=== PATIENT | male | born 1935 | race Caucasian/White ===

== ENCOUNTER 2016-07-25 17:48 | Emergency (ER) | payer OTHER ==
[~2016-07-25 17:48] MED LIST: ASPIRIN ADULT L81 MG PO; AVAPRO150 MG PO; AVODART0.5 MG PO; BENADRYL25 MG PO; CEFTIN500 MG PO; FLOMAX0.4 MG PO; GABAPENTIN300 MG PO; HYDRALAZINE HCL25 MG PO; LASIX20 MG PO; LIPITOR10 MG PO; LIPOFLAVONOID; MAG6464 MG PO; MULTIPLE VITAMIN PO; NORVASC10 MG PO; PREDNISONE20 MG PO; QVAR40 MCG IN; TOPROL XL50 MG PO; TRAMADOL HCL50 MG PO; VENTOLIN HFA IN
--- NOTE | 2016-07-25 20:09 | DIAGNOSTIC IMAGING REPORT ---
PROCEDURE: XR RIBS UNILAT W/PA CHEST-RT INDICATION: PAIN TECHNIQUE: Two views of the right ribs with single PA view chest. COMPARISON: Chest x-ray 01/02/2016 FINDINGS: RIGHT RIBS: No fracture or suspicious osseous lesion. CHEST: Median sternotomy. Heart size and pulmonary vessels are normal. Tortuous aorta. Minor left basilar scarring. IMPRESSION: 1. Normal right ribs 2. Sternotomy 3. Minor left basilar scarring
--- NOTE | 2016-07-25 22:20 | ED CLINICAL REPORT ---
Clinical Report - Physicians/Mid Levels [facility] [address] [place] [address] 07/25/2016 17:48 [id number] Time Seen: 18:27 Jul 25 2016. Arrived- By private vehicle. Historian- patient. HISTORY OF PRESENT ILLNESS Chief Complaint: ABDOMINAL PAIN. At its maximum, severity described as severe. When seen in the E.D., it was gone. 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 It is described as sharp. No radiation. It is described as located in the right flank. No nausea, loss of appetite, vomiting or diarrhea. No additional abdominal pain. No recent travel. Similar symptoms previously: None. Recent medical care: The patient was seen recently by a health care provider. REVIEW OF SYSTEMS No chest pain or difficulty breathing. He has had a moderate cough (about 2 weeks. on amoxicillin but has not helped). All systems otherwise negative, except as recorded above. PAST HISTORY Renal Insufficiency. Pneumonia. Diabetes Mellitus. Bronchitis. URI. Hyperkalemia. Hypoxia. Asthma. Hypertension. Myocardial Infarction. Renal Failure. Kidney failure. Congestive Heart Failure. --18:21 He Haywood RCarmine. ADDITIONAL SURGERIES: Coronary Artery Bypass Graft. Open heart. Medications: Avapro Oral, 2x a day. Avodart Oral, daily. BENTLEY. Flomax Oral (Capsule 0.4 mg) 1 capsule, 2x a day. Gabapentin Oral, 4x a day as needed. HydrALAZINE HCl Oral x2 daily. Lasix Oral, daily. Lipitor Oral. Norvasc Oral, daily. TraMADol HCl Oral, 4x a day as needed. Allergies: No Known Drug Allergy. SOCIAL HISTORY Never smoker. No alcohol use or drug use. No recent travel. Is a local resident. FAMILY HISTORY Negative. PHYSICAL EXAM Appearance: Alert. Oriented X3. No acute distress. Eyes: Pupils equal, round and reactive to light. Eyes normal inspection. ENT: Ears normal. Nose normal. Pharynx normal. CVS: Normal heart rate and rhythm. Heart sounds normal. Pulses normal. Respiratory: No respiratory distress. Breath sounds normal. Chest nontender. Abdomen: Soft and nontender. Bowel sounds normal. Back: Normal inspection. (no midline tenderness. no crepitus.). Skin: Skin warm and dry. Normal skin color. No rash. Normal skin turgor. Extremities: Extremities exhibit normal ROM. No lower extremity edema. Neuro: Oriented X 3. No motor deficit. No sensory deficit. (normal gain when assisted with two canes). LABS, X-RAYS, AND EKG EKG: No acute ischemia. Narrow-complex tachycardia (103). Sinus tachycardia. Normal P waves. Normal DRU. Normal QRS complex. Normal axis. Normal ST and T waves, QT and QTc. normal sinus with occasional PVCS. The study has been interpreted contemporaneously. The study has been independently viewed by me. The EKG appears to be a good tracing. X-Rays: Rib series negative. Chest X-ray: Patchy infiltrate in the left lower lobe. Consistent with pneumonia. Views: PA. Technique: good. The X-rays were independently viewed by me and interpreted contemporaneously by me. Laboratory Tests: UA-Culture if indicated: (SIA: 07/25/2016 19:37) ( [facility] [place] 07/25/2016 20:00) Final results Test Result Flag Units (Reference) URINE COLOR YELLOW URINE APPEARANCE CLEAR URINE GLUCOSE NEGATIVE (NEGATIVE) URINE BILIRUBIN NEGATIVE (NEGATIVE) URINE KETONE NEGATIVE (NEGATIVE) URINE SPECIFIC GRAVITY 1.020 (1.010-1.030) URINE PH 5.5 (5.0-8.0) URINE PROTEIN NEGATIVE (NEGATIVE) URINE UROBILINOGEN 0.2 EU/dL (0.2-1.0) URINE NITRITE NEGATIVE (NEGATIVE) URINE BLOOD NEGATIVE (NEGATIVE) URINE LEUK ESTERASE NEGATIVE (NEGATIVE) URINE RBC RARE rbc/hpf (0-1) URINE WBC RARE wbc/hpf (0-1) URINE EPITHELIAL CELLS RARE EPI/hpf (0-5) URINE BACTERIA NONE SEEN (NONE SEEN) URINE COMMENT CULT NOT INDICATED URINE CULTURES ARE SET-UP BASED ON THE FOLLOWING CRITERIA:POSITIVE NITRITEPOSITIVE LEUKOCYTE ESTERASEGREATER THAN 10 WHITE BLOOD CELLSMODERATE (2+) OR GREATER BACTERIA CBC w Diff: (SIA: 07/25/2016 18:33) ( MsgRcvd 07/25/2016 18:49) Final results Test Result Flag Units (Reference) WHITE BLOOD COUNT 12.0 H K/uL (4.5-11.5) RED BLOOD COUNT 3.44 L M/uL (4.50-5.90) HEMOGLOBIN 10.8 L gm/dL (13.5-17.5) HEMATOCRIT 32.2 L % (41.0-53.0) MEAN CELL VOLUME 94 fL (80-100) MEAN CORPUSCULAR HGB 31 pg (26-34) MEAN CORPUSCULAR HGB CONC 34 g/dL (31-37) RED CELL DISTRIBUTION WIDTH 13.8 % (11.6-14.8) PLATELET COUNT 272 K/uL (150-400) NEUTROPHIL % 82.8 H % (50-75) LYMPH % 8.3 L % (25-40) MONO % 6.9 % (3-14) EOSINOPHIL % 1.6 % (0-4) BASOPHIL % 0.4 % (0-2) PT with INR: (SIA: 07/25/2016 18:33) ( [facility] 07/25/2016 18:55) Final results Test Result Flag Units (Reference) INR 1.0 (0.8-1.2) Low Intensity Therapy: INR 1.5-2.0 PT range 18.5-23.1Mod.Intensity Therapy: INR 2.0-3.0 PT range 23.1-31.5High Intensity Therapy: INR 2.5-3.5 PT range 27.4-35.5High Intensity Therapy 2: INR 3.0-4.0 PT range 31.5-39.3 [id number]: (SIA: 07/25/2016 21:06) ( [facility] [place] 07/25/2016 21:23) Final results Test Result Flag Units (Reference) POTASSIUM 6.4 H mmol/L (3.5-5.1) CMP: (SIA: 07/25/2016 18:33) ( [facility] [place] 07/25/2016 19:06) Final results Test Result Flag Units (Reference) GLUCOSE 138 H mg/dL (70-110) BUN 63 H mg/dL (7-18) CREATININE 3.4 H mg/dL (0.6-1.3) Estimated GFR 18.52 mL/min Estimated GFR- 22.45 mL/min Note: Persistent reduction over 3 months in eGFR<60 mL/min/1.73 m2 defines CKD. Patients with eGFR values>=60 mL/min/1.73 m2 may also have CKD if evidence ofpersistent proteinuria. Additional information may be foundat www.kidney.org. SODIUM 138 mmol/L (136-145) POTASSIUM 6.4 H mmol/L (3.5-5.1) CHLORIDE 107 mmol/L (98-107) CARBON DIOXIDE 20 L mmol/L (21-32) CALCIUM 9.7 mg/dL (8.5-10.1) TOTAL PROTEIN 7.6 g/dL (6.4-8.2) ALBUMIN 3.1 L g/dL (3.3-5.0) BILIRUBIN, TOTAL 0.3 mg/dL (0.0-1.0) ALKALINE PHOSPHATASE 85 U/L (46-116) AST (SGOT) 21 U/L (15-37) ALT (SGPT) 25 U/L (12-78) LIPASE 214 U/L (73-393) AMYLASE 55 U/L (25-115) . PROGRESS AND PROCEDURES Course of Care: the patient is a pleasant 80-year-old male presenting for evaluation of right-sided rib pain. Patient has been coughing for the past 2 weeks. Differential diagnosis includedpneumonia versus rib fracture versuspneumothorax. Chest x-ray shows patient to have pneumonia. Antibiotics have been ordered. Workup including electrolytes and EKG have been ordered prior kailash arrival on shift. Patient was seen by the previous doctor. Agree with the patient's assessment and plan. I have introduced myself to the patient and performed my own independent examination and history. Patient is noted to have a repeat potassium that is pending. Therepeat potassium was noted to still be elevated. EKG ordered for evaluation of anyEKG abnormalities associated with elevated potassium. No evidence of hyperkalemia noted on patient's EKG. Had long discussion with patient in regards to admission to the hospital. Patient reports that he has a long history of having elevated potassium. Patient reports not wanting to be admitted to the hospital at this time. Discussed with patient risks and benefits of doing so. Patient agrees to the risks of managing his pneumonia at home. Patient reported some difficulty with ambulating and reports that now he is able to do so. Patient with good ambulation with his2 canes. Patient is unsteady on his feet. Patient reports that he would like to return home After long discussion with patient in regards to my concerns for his health and wanting the safestplan of care for him, patient reports that he does not want to be admitted. Discussed with patient workup, diagnosis, home care, follow-up, and return precautions. All questions have been answered. The patient and significant other expressed understanding of these instructions and was agreeable to them. Strict return precautions are provided. Antibiotics of also been given here in the emergency department with a prescription. Patient is noted to be on amoxicillin. Azithromycin will be ordered. Patientwas educated onhyperkalemia. Patient is already on appropriate medications and reports that he may have missedhis dose recently as a cause for the hyperkalemia. Patient makes urine. Disposition: Discharged. Condition: stable. CLINICAL IMPRESSION 07/25/2016 22:06 BP: 142/74. HR: 111. RR: 16. O2 saturation: 90%. Blood pressure normal. Oxygen saturation normal. Bacterial pneumonia. (acute lingular). Hyperkalemia (acute). chronic renal insufficiency. INSTRUCTIONS Warnings: GENERAL WARNINGS: Return or contact your physician immediately if your condition worsens or changes unexpectedly, if not improving as expected, or if other problems arise. SPECIFICALLY, return if you develop pain, fever, vomiting, the inability to keep fluids down, blood in vomitus, blood in diarrhea, fainting or lightheadedness. Your Current Medications: CONTINUE TAKING THE FOLLOWING MEDICATIONS: Avapro Oral : 2x a day. Avodart Oral : daily. BENTLEY*. Flomax Oral : Capsule 0.4 mg, 1 capsule 2x a day. Gabapentin Oral : 4x a day, prn. HydrALAZINE HCl Oral : x2 daily. Lasix Oral : daily. Lipitor Oral. Norvasc Oral : daily. TraMADol HCl Oral : 4x a day, prn. Prescription Medications: Zithromax Z-Juan: Take according to package instructions. No refills. Substitution is permissible. Follow-up: Return to the emergency department as needed. Follow up with your doctor in three days. Reason for referral: recheck today's concerns. Summary of care provided to patient via paper. Screening today revealed the patient's blood pressure to be in the normal range. The patient should follow up with a primary care provider for blood pressure management. Understanding of the discharge instructions verbalized by patient and family. (Electronically signed by Ron Arthur Dr. 07/26/2016 8:33)
--- NOTE | 2016-07-25 22:20 | ED ORDER SUMMARY ---
..... Patient: AVINASH CHASE OrderSheet [facility] VisitID: [id number] [place] [address] 80y, M Registration Date/Time: 07/25/2016 ORDER SHEET Weight: 81.6 kg (stated) Allergies: No Known Drug Allergy GENERAL ORDERS: CBC w Diff Urgent (18:37 07/25/2016 DBeyer R.N. per protocol) (Ack 18:47 LTapper) (19:12 NHouse ER Tech1) CMP Urgent (18:37 07/25/2016 DBeyer R.N. per protocol) (Ack 18:47 LTapper) (19:12 NHouse ER Tech1) Lipase Urgent (18:37 07/25/2016 DBeyer R.N. per protocol) (Ack 18:47 LTapper) (19:12 NHouse ER Tech1) Amylase Urgent (18:37 07/25/2016 DBeyer R.N. per protocol) (Ack 18:47 LTapper) (19:12 NHouse ER Tech1) PT with INR Urgent (18:37 07/25/2016 DBeyer R.N. per protocol) (Ack 18:47 LTapper) (19:12 NHouse ER Tech1) UA-Culture if indicated Urgent (18:37 07/25/2016 DBeyer R.N. per protocol) (Ack 18:47 LTapper) (20:54 SRedmond) Ribs Unilat w PA Chest Right Urgent (18:44 07/25/2016 Rachele SANCHEZ) (Ack 18:47 LTapper) (19:01 RFay) Potassium Urgent (20:57 07/25/2016 Rachele SANCHEZ) (Ack 21:00 SRedmond) (22:22 SRedmond) EKG - ER Stat (21:45 07/25/2016 Bhanu Prieto) (Ack 21:59 SRedmond) (22:00 HSoule) MEDICATION ORDERS: Azithromycin PO 500 mg (NOW) (22:16 07/25/2016 Bhanu Prieto) (22:29 HSoule) IV FLUIDS: IV Saline Lock (18:37 07/25/2016 Toro Patel per protocol) (18:38 Toro Patel) ORDER SHEET NOTES: [Electronically signed by He Haywood R.N. (23:21 07/25/2016)] [Electronically signed by Ron Arthur Dr. (08:33 07/26/2016)] [Electronically locked/signed by He Haywood R.N. (23:07/25/2016)]
--- NOTE | 2016-07-25 22:20 | ED CLINICAL REPORT ---
Clinical Report - Physicians/Mid Levels [facility] [address] [place] [address] 07/25/2016 17:48 [id number] Time Seen: 18:27 Jul 25 2016. Arrived- By private vehicle. Historian- patient. HISTORY OF PRESENT ILLNESS Chief Complaint: ABDOMINAL PAIN. At its maximum, severity described as severe. When seen in the E.D., it was gone. 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 No radiation. It is described as located in the right flank. No nausea, loss of appetite, vomiting or diarrhea. No additional abdominal pain. No recent travel. Similar symptoms previously: None. Recent medical care: The patient was seen recently by a health care provider. REVIEW OF SYSTEMS No chest pain or difficulty breathing. He has had a moderate cough (about 2 weeks. on amoxicillin but has not helped). All systems otherwise negative, except as recorded above. PAST HISTORY Renal Insufficiency. Pneumonia. Diabetes Mellitus. Bronchitis. URI. Hyperkalemia. Hypoxia. Asthma. Hypertension. Myocardial Infarction. Renal Failure. Kidney failure. Congestive Heart Failure. --18:21 He Haywood RCarmine. ADDITIONAL SURGERIES: Coronary Artery Bypass Graft. Open heart. Medications: Avapro Oral, 2x a day. Avodart Oral, daily. BENTLEY. Flomax Oral (Capsule 0.4 mg) 1 capsule, 2x a day. Gabapentin Oral, 4x a day as needed. HydrALAZINE HCl Oral x2 daily. Lasix Oral, daily. Lipitor Oral. Norvasc Oral, daily. TraMADol HCl Oral, 4x a day as needed. Allergies: No Known Drug Allergy. SOCIAL HISTORY Never smoker. No alcohol use or drug use. No recent travel. Is a local resident. FAMILY HISTORY Negative. PHYSICAL EXAM Appearance: Alert. Oriented X3. No acute distress. Eyes: Pupils equal, round and reactive to light. Eyes normal inspection. ENT: Ears normal. Nose normal. Pharynx normal. CVS: Normal heart rate and rhythm. Heart sounds normal. Pulses normal. Respiratory: No respiratory distress. Breath sounds normal. Chest nontender. Abdomen: Soft and nontender. Bowel sounds normal. Back: Normal inspection. (no midline tenderness. no crepitus.). Skin: Skin warm and dry. Normal skin color. No rash. Normal skin turgor. Extremities: Extremities exhibit normal ROM. No lower extremity edema. Neuro: Oriented X 3. No motor deficit. No sensory deficit. (normal gain when assisted with two canes). LABS, X-RAYS, AND EKG EKG: No acute ischemia. Narrow-complex tachycardia (103). Sinus tachycardia. Normal P waves. Normal DRU. Normal QRS complex. Normal axis. Normal ST and T waves, QT and QTc. normal sinus with occasional PVCS. The study has been interpreted contemporaneously. The study has been independently viewed by me. The EKG appears to be a good tracing. X-Rays: Rib series negative. Chest X-ray: Patchy infiltrate in the left lower lobe. Consistent with pneumonia. Views: PA. Technique: good. The X-rays were independently viewed by me and interpreted contemporaneously by me. Laboratory Tests: UA-Culture if indicated: (SIA: 07/25/2016 19:37) ( [facility] [place]) Final results Test Result Flag Units (Reference) URINE COLOR YELLOW URINE APPEARANCE CLEAR URINE GLUCOSE NEGATIVE (NEGATIVE) URINE BILIRUBIN NEGATIVE (NEGATIVE) URINE KETONE NEGATIVE (NEGATIVE) URINE SPECIFIC GRAVITY 1.020 (1.010-1.030) URINE PH 5.5 (5.0-8.0) URINE PROTEIN NEGATIVE (NEGATIVE) URINE UROBILINOGEN 0.2 EU/dL (0.2-1.0) URINE NITRITE NEGATIVE (NEGATIVE) URINE BLOOD NEGATIVE (NEGATIVE) URINE LEUK ESTERASE NEGATIVE (NEGATIVE) URINE RBC RARE rbc/hpf (0-1) URINE WBC RARE wbc/hpf (0-1) URINE EPITHELIAL CELLS RARE EPI/hpf (0-5) URINE BACTERIA NONE SEEN (NONE SEEN) URINE COMMENT CULT NOT INDICATED URINE CULTURES ARE SET-UP BASED ON THE FOLLOWING CRITERIA:POSITIVE NITRITEPOSITIVE LEUKOCYTE ESTERASEGREATER THAN 10 WHITE BLOOD CELLSMODERATE (2+) OR GREATER BACTERIA CBC w Diff: (SIA: 07/25/2016 18:33) ( MsgRcvd 07/25/2016 18:49) Final results Test Result Flag Units (Reference) WHITE BLOOD COUNT 12.0 H K/uL (4.5-11.5) RED BLOOD COUNT 3.44 L M/uL (4.50-5.90) HEMOGLOBIN 10.8 L gm/dL (13.5-17.5) HEMATOCRIT 32.2 L % (41.0-53.0) MEAN CELL VOLUME 94 fL (80-100) MEAN CORPUSCULAR HGB 31 pg (26-34) MEAN CORPUSCULAR HGB CONC 34 g/dL (31-37) RED CELL DISTRIBUTION WIDTH 13.8 % (11.6-14.8) PLATELET COUNT 272 K/uL (150-400) NEUTROPHIL % 82.8 H % (50-75) LYMPH % 8.3 L % (25-40) MONO % 6.9 % (3-14) EOSINOPHIL % 1.6 % (0-4) BASOPHIL % 0.4 % (0-2) PT with INR: (SIA: 07/25/2016 18:33) ( [facility] 07/25/2016 18:55) Final results Test Result Flag Units (Reference) INR 1.0 (0.8-1.2) Low Intensity Therapy: INR 1.5-2.0 PT range 18.5-23.1Mod.Intensity Therapy: INR 2.0-3.0 PT range 23.1-31.5High Intensity Therapy: INR 2.5-3.5 PT range 27.4-35.5High Intensity Therapy 2: INR 3.0-4.0 PT range 31.5-39.3 [id number]: (SIA: 07/25/2016 21:06) ( [facility] [place] 21:23) Final results Test Result Flag Units (Reference) POTASSIUM 6.4 H mmol/L (3.5-5.1) CMP: (SIA: 07/25/2016 18:33) ( [facility] [place] 07/25/2016 19:06) Final results Test Result Flag Units (Reference) GLUCOSE 138 H mg/dL (70-110) BUN 63 H mg/dL (7-18) CREATININE 3.4 H mg/dL (0.6-1.3) Estimated GFR 18.52 mL/min Estimated GFR- 22.45 mL/min Note: Persistent reduction over 3 months in eGFR<60 mL/min/1.73 m2 defines CKD. Patients with eGFR values>=60 mL/min/1.73 m2 may also have CKD if evidence ofpersistent proteinuria. Additional information may be foundat www.kidney.org. SODIUM 138 mmol/L (136-145) POTASSIUM 6.4 H mmol/L (3.5-5.1) CHLORIDE 107 mmol/L (98-107) CARBON DIOXIDE 20 L mmol/L (21-32) CALCIUM 9.7 mg/dL (8.5-10.1) TOTAL PROTEIN 7.6 g/dL (6.4-8.2) ALBUMIN 3.1 L g/dL (3.3-5.0) BILIRUBIN, TOTAL 0.3 mg/dL (0.0-1.0) ALKALINE PHOSPHATASE 85 U/L (46-116) AST (SGOT) 21 U/L (15-37) ALT (SGPT) 25 U/L (12-78) LIPASE 214 U/L (73-393) AMYLASE 55 U/L (25-115) . PROGRESS AND PROCEDURES Course of Care: the patient is a pleasant 80-year-old male presenting for evaluation of right-sided rib pain. Patient has been coughing for the past 2 weeks. Differential diagnosis includedpneumonia versus rib fracture versuspneumothorax. Chest x-ray shows patient to have pneumonia. Antibiotics have been ordered. Workup including electrolytes and EKG have been ordered prior kailash arrival on shift. Patient was seen by the previous doctor. Agree with the patient's assessment and plan. I have introduced myself to the patient and performed my own independent examination and history. Patient is noted to have a repeat potassium that is pending. Therepeat potassium was noted to still be elevated. EKG ordered for evaluation of anyEKG abnormalities associated with elevated potassium. No evidence of hyperkalemia noted on patient's EKG. Had long discussion with patient in regards to admission to the hospital. Patient reports that he has a long history of having elevated potassium. Patient reports not wanting to be admitted to the hospital at this time. Discussed with patient risks and benefits of doing so. Patient agrees to the risks of managing his pneumonia at home. Patient reported some difficulty with ambulating and reports that now he is able to do so. Patient with good ambulation with his2 canes. Patient is unsteady on his feet. Patient reports that he would like to return home After long discussion with patient in regards to my concerns for his health and wanting the safestplan of care for him, patient reports that he does not want to be admitted. Discussed with patient workup, diagnosis, home care, follow-up, and return precautions. All questions have been answered. The patient and significant other expressed understanding of these instructions and was agreeable to them. Strict return precautions are provided. Antibiotics of also been given here in the emergency department with a prescription. Patient is noted to be on amoxicillin. Azithromycin will be ordered. Patientwas educated onhyperkalemia. Patient is already on appropriate medications and reports that he may have missedhis dose recently as a cause for the hyperkalemia. Patient makes urine. Disposition: Discharged. Condition: stable. CLINICAL IMPRESSION 07/25/2016 22:06 BP: 142/74. HR: 111. RR: 16. O2 saturation: 90%. Blood pressure normal. Oxygen saturation normal. Bacterial pneumonia. (acute lingular). Hyperkalemia (acute). chronic renal insufficiency. INSTRUCTIONS Warnings: GENERAL WARNINGS: Return or contact your physician immediately if your condition worsens or changes unexpectedly, if not improving as expected, or if other problems arise. SPECIFICALLY, return if you develop pain, fever, vomiting, the inability to keep fluids down, blood in vomitus, blood in diarrhea, fainting or lightheadedness. Your Current Medications: CONTINUE TAKING THE FOLLOWING MEDICATIONS: Avapro Oral : 2x a day. Avodart Oral : daily. BENTLEY*. Flomax Oral : Capsule 0.4 mg, 1 capsule 2x a day. Gabapentin Oral : 4x a day, prn. HydrALAZINE HCl Oral : x2 daily. Lasix Oral : daily. Lipitor Oral. Norvasc Oral : daily. TraMADol HCl Oral : 4x a day, prn. Prescription Medications: Zithromax Z-Juan: Take according to package instructions. No refills. Substitution is permissible. Follow-up: Return to the emergency department as needed. Follow up with your doctor in three days. Reason for referral: recheck today's concerns. Summary of care provided to patient via paper. Screening today revealed the patient's blood pressure to be in the normal range. The patient should follow up with a primary care provider for blood pressure management. Understanding of the discharge instructions verbalized by patient and family. (Electronically signed by Ron Arthur Dr. 07/26/2016 8:33)
--- NOTE | 2016-07-25 22:20 | ED NURSING NOTES ---
Clinical Report - Nurses [facility] [address] [place] [address] 07/25/2016 17:48 Patient: AVINASH CHASE TRIAGE Triage time 18:20 Jul 25 2016. Acuity: LEVEL 3. Chief Complaint: ABDOMINAL PAIN. --18:23 He Haywood R.N. 18:20 07/25/16. BP: 149/67. HR: 101. RR: 20. O2 saturation: 93%. Temp: 99.8 F. Pain level now 0/10. --18:23 He Haywood R.N. Weight: 81.6 kg stated. Height/Length: 72 inches Per Patient. BMI: 24.4. --18:22 He Haywood R.N. Medications Avapro Oral, 2x a day. Avodart Oral, daily. BENTLEY. Flomax Oral (Capsule 0.4 mg) 1 capsule, 2x a day. Gabapentin Oral, 4x a day as needed. HydrALAZINE HCl Oral x2 daily. Lasix Oral, daily. Lipitor Oral. Norvasc Oral, daily. TraMADol HCl Oral, 4x a day as needed. --18:21 He Haywood R.N. Allergies No Known Drug Allergy. --18:21 He Haywood R.N. History Arrived by private vehicle. ( Pt states sided back pain +2 days, pain worse today). This started yesterday. Treatment MANAGER CLINIC: None. SOCIAL HX: Never smoker. No alcohol use or drug use. --18:23 He Haywood R.N. ( was given prescription for amoxicillin Wednesday afternoon). --18:23 He Haywood R.N. PROBLEMS: Renal Insufficiency. Pneumonia. Diabetes Mellitus. Bronchitis. URI. Hyperkalemia. Hypoxia. Asthma. Hypertension. Myocardial Infarction. Renal Failure. Kidney failure. Congestive Heart Failure. --18:21 He Haywood R.N. ADDITIONAL SURGERIES: Coronary Artery Bypass Graft. Open heart. --18:22 He Haywood R.N. Interventions ID band on patient. To treatment room. --18:23 He Haywood R.N. PHYSICAL ASSESSMENT GENERAL / NEURO / PSYCH: Alert. Oriented X 4. Appears in pain. RESPIRATORY: Mild respiratory distress. Breath sounds within normal limits. CVS: Capillary refill less than 2 seconds. GI / : Abdomen soft and nontender. SKIN: Skin is warm and dry. --18:24 He Haywood R.N. NURSING PROGRESS NOTES Pulse oximeter placed on patient. Patient gowned. Call light placed in reach. Side rails up x 2. Bed placed in lowest position. --18:24 He Haywood R.N. 18:38 07/25/2016 Site #1 started via IV in the right antecubital space with an 20g angiocath, with aseptic technique and good blood return; one attempt. Blood drawn: rainbow set. Labeled in the presence of the patient and sent to the lab. Saline lock flushed with saline. --18:38 He Haywood R.N. 19:09 07/25/16. BP: 133/68. O2 saturation: 92%. --19:09 He Haywood R.N. ( pt resting in bed in no obvious distress). --22:05 He Haywood R.N. 22:06 07/25/16. BP: 142/74. HR: 111. RR: 16. O2 saturation: 90%. --22:11 Hortencia Burch ER Tech1 22:29 07/25/2016 Azithromycin PO Tablets 500 mg given. Allergies verified and confirmed 5 rights. --22:29 Diana Encinas. DISPOSITION / DISCHARGE Departure time: 22:40 Jul 25 2016. No learning barriers present. Discharge instructions provided and reviewed with the patient. Reviewed medication(s) information. Patient verbalized understanding. Written instructions provided in Nepali. The patient was discharged by the physician. He was discharged home and accompanied by greaser operator. He left the Emergency Department in a wheelchair and via private vehicle. Family member driving. --22:40 He Haywood R.N. 22:39 07/25/16. BP: 142/70. HR: 86. RR: 18. O2 saturation: 95%. Temp: 98.3 F. Pain level now 0/10. --22:40 He Haywood R.N. Locked/Released at 07/25/2016 23:21 by He Haywood R.N.
--- NOTE | 2016-07-25 22:20 | ED NURSING NOTES ---
Clinical Report - Nurses [facility] [address] [place] [address] 07/25/2016 17:48 Patient: AVINASH CHASE TRIAGE Triage time 18:20 Jul 25 2016. Acuity: LEVEL 3. Chief Complaint: ABDOMINAL PAIN. --18:23 He Haywood R.N. 18:20 07/25/16. BP: 149/67. HR: 101. RR: 20. O2 saturation: 93%. Temp: 99.8 F. Pain level now 0/10. --18:23 He Haywood R.N. Weight: 81.6 kg stated. Height/Length: 72 inches Per Patient. BMI: 24.4. --18:22 He Haywood R.N. Medications Avapro Oral, 2x a day. Avodart Oral, daily. BENTLEY. Flomax Oral (Capsule 0.4 mg) 1 capsule, 2x a day. Gabapentin Oral, 4x a day as needed. HydrALAZINE HCl Oral x2 daily. Lasix Oral, daily. Lipitor Oral. Norvasc Oral, daily. TraMADol HCl Oral, 4x a day as needed. --18:21 He Haywood R.N. Allergies No Known Drug Allergy. --18:21 He Haywood R.N. History Arrived by private vehicle. ( Pt states sided back pain +2 days, pain worse today). This started yesterday. Treatment PILOT TEACHER: None. SOCIAL HX: Never smoker. No alcohol use or drug use. --18:23 He Haywood R.N. ( was given prescription for amoxicillin Wednesday afternoon). --18:23 He Haywood R.N. PROBLEMS: Renal Insufficiency. Pneumonia. Diabetes Mellitus. Bronchitis. URI. Hyperkalemia. Hypoxia. Asthma. Hypertension. Myocardial Infarction. Renal Failure. Kidney failure. Congestive Heart Failure. --18:21 He Haywood R.N. ADDITIONAL SURGERIES: Coronary Artery Bypass Graft. Open heart. --18:22 He Haywood R.N. Interventions ID band on patient. To treatment room. --18:23 He Haywood R.N. PHYSICAL ASSESSMENT GENERAL / NEURO / PSYCH: Alert. Oriented X 4. Appears in pain. RESPIRATORY: Mild respiratory distress. Breath sounds within normal limits. CVS: Capillary refill less than 2 seconds. GI / : Abdomen soft and nontender. SKIN: Skin is warm and dry. --18:24 He Haywood R.N. NURSING PROGRESS NOTES Pulse oximeter placed on patient. Patient gowned. Call light placed in reach. Side rails up x 2. Bed placed in lowest position. --18:24 He Haywood R.N. 18:38 07/25/2016 Site #1 started via IV in the right antecubital space with an 20g angiocath, with aseptic technique and good blood return; one attempt. Blood drawn: rainbow set. Labeled in the presence of the patient and sent to the lab. Saline lock flushed with saline. --18:38 He Haywood R.N. 19:09 07/25/16. BP: 133/68. O2 saturation: 92%. --19:09 He Haywood R.N. ( pt resting in bed in no obvious distress). --22:05 He Haywood R.N. 22:06 07/25/16. BP: 142/74. HR: 111. RR: 16. O2 saturation: 90%. --22:11 Hortencia Burch ER Tech1 22:29 07/25/2016 Azithromycin PO Tablets 500 mg given. Allergies verified and confirmed 5 rights. --22:29 Diana Encinas. DISPOSITION / DISCHARGE Departure time: 22:40 Jul 25 2016. No learning barriers present. Discharge instructions provided and reviewed with the patient. Reviewed medication(s) information. Patient verbalized understanding. Written instructions provided in Maltese. The patient was discharged by the physician. He was discharged home and accompanied by bridge crew member. He left the Emergency Department in a wheelchair and via private vehicle. Family member driving. --22:40 He Haywood R.N. 22:39 07/25/16. BP: 142/70. HR: 86. RR: 18. O2 saturation: 95%. Temp: 98.3 F. Pain level now 0/10. --22:40 He Haywood R.N. Locked/Released at 07/25/2016 23:21 by He Haywood R.N.
--- NOTE | 2016-07-25 22:20 | ED ORDER SUMMARY ---
..... Patient: AVINASH CHASE OrderSheet [facility] VisitID: [id number] [place] [address] 80y, M Registration Date/Time: 07/25/2016 ORDER SHEET Weight: 81.6 kg (stated) Allergies: No Known Drug Allergy GENERAL ORDERS: CBC w Diff Urgent (18:37 07/25/2016 DBeyer R.N. per protocol) (Ack 18:47 LTapper) (19:12 NHouse ER Tech1) CMP Urgent (18:37 07/25/2016 DBeyer R.N. per protocol) (Ack 18:47 LTapper) (19:12 NHouse ER Tech1) Lipase Urgent (18:37 07/25/2016 DBeyer R.N. per protocol) (Ack 18:47 LTapper) (19:12 NHouse ER Tech1) Amylase Urgent (18:37 07/25/2016 DBeyer R.N. per protocol) (Ack 18:47 LTapper) (19:12 NHouse ER Tech1) PT with INR Urgent (18:37 07/25/2016 DBeyer R.N. per protocol) (Ack 18:47 LTapper) (19:12 NHouse ER Tech1) UA-Culture if indicated Urgent (18:37 07/25/2016 DBeyer R.N. per protocol) (Ack 18:47 LTapper) (20:54 SRedmond) Ribs Unilat w PA Chest Right Urgent (18:44 07/25/2016 Rachele SANCHEZ) (Ack 18:47 LTapper) (19:01 RFay) Potassium Urgent (20:57 07/25/2016 Rachele SANCHEZ) (Ack 21:00 SRedmond) (22:22 SRedmond) EKG - ER Stat (21:45 07/25/2016 Bhanu Prieto) (Ack 21:59 SRedmond) (22:00 HSoule) MEDICATION ORDERS: Azithromycin PO 500 mg (NOW) (22:16 07/25/2016 Bhanu Prieto) (22:29 HSoule) IV FLUIDS: IV Saline Lock (18:37 07/25/2016 Toro Patel per protocol) (18:38 Toro Patel) ORDER SHEET NOTES: [Electronically signed by He Haywood R.N. (23:21 07/25/2016)] [Electronically signed by Ron Arthur Dr. (08:33 07/26/2016)] [Electronically locked/signed by He Haywood R.N. (23:07/25/2016)]
--- NOTE | 2016-07-26 08:33 | ED DISCHARGE INSTRUCTIONS ---
Patient: AVINASH CHASE General Instructions [facility] VisitID: [id number] [place] [address] 80y, M Registration Date/Time: 07/25/2016 07/25/2016 22:06 BP: 142/74. HR: 111. RR: 16. O2 saturation: 90%. Blood pressure normal. Oxygen saturation normal. Bacterial pneumonia. (acute lingular). Hyperkalemia (acute). chronic renal insufficiency. INSTRUCTIONS Warnings: GENERAL WARNINGS: Return or contact your physician immediately if your condition worsens or changes unexpectedly, if not improving as expected, or if other problems arise. SPECIFICALLY, return if you develop pain, fever, vomiting, the inability to keep fluids down, blood in vomitus, blood in diarrhea, fainting or lightheadedness. Your Current Medications: CONTINUE TAKING THE FOLLOWING MEDICATIONS: Avapro Oral : 2x a day. Avodart Oral : daily. BENTLEY*. Flomax Oral : Capsule 0.4 mg, 1 capsule 2x a day. Gabapentin Oral : 4x a day, prn. HydrALAZINE HCl Oral : x2 daily. Lasix Oral : daily. Lipitor Oral. Norvasc Oral : daily. TraMADol HCl Oral : 4x a day, prn. Prescription Medications: Zithromax Z-Juan: Take according to package instructions. No refills. Substitution is permissible. Follow-up: Return to the emergency department as needed. Follow up with your doctor in three days. Reason for referral: recheck today's concerns. Summary of care provided to patient via paper. Screening today revealed the patient's blood pressure to be in the normal range. The patient should follow up with a primary care provider for blood pressure management. Understanding of the discharge instructions verbalized by patient and family. ADDITIONAL INFORMATION Pneumonia (Adult) Pneumonia is an infection deep within the lung, in the small air sacs (alveoli). It may be due to a virus or bacteria and is usually treated with an antibiotic. Severe cases require treatment in the hospital. Milder cases can be treated at home. Symptoms usually start to improve during the first2 days of treatment. Home Care: Rest at home for the first 23 days or until you feel stronger. When resuming activity, dont let yourself become overly tired. Avoid exposure to cigarette smoke (yours or others). You may use acetaminophen (Tylenol) or ibuprofen (Motrin, Advil) to control fever or pain, unless another medicine was prescribed. [NOTE: If you have chronic liver or kidney disease or ever had a stomach ulcer or GI bleeding, talk with your doctor before using these medicines.] (Aspirin should never be used in anyone under 18 years of age who is ill with a fever. It may cause severe liver damage.) Your appetite may be poor so a light diet is fine. Keep well hydrated by drinking 68 glasses of fluids per day (water, sport drinks such as Gatorade, sodas without caffeine, juices, tea, soup, etc.). This will help loosen secretions in the lung, making it easier for you to cough up the phlegm (sputum). If you also have heart or kidney disease, check with your doctor before you drink extra amounts of fluids. Finish all antibiotic medicine prescribed, even if you are feeling better after a few days. Follow Up with your doctor in the next 23 days (or as advised) to be sure you are responding properly to the medicine. [NOTE: If you are age 65 or older, or if you have chronic lung disease (asthma, emphysema or COPD), we recommendthe pneumococcal vaccination and a yearlyinfluenzavaccination(flu-shot) every . Ask your doctor about this.] Get Prompt Medical Attention if any of the following occur: Not getting better within the first 48 hours of treatment Increasing shortness of breath or rapid breathing (over 25 breaths/minute) Coughing up blood or increasing chest pain with breathing Fever of 100.4F (38C) oral or higher, not better with fever medication Increasing weakness, dizziness or fainting Increasing thirst or dry mouth Sinus pain, headache or a stiff neck Chest pain not caused by coughing Hyperkalemia Hyperkalemia is a condition caused by too much potassium in the blood. Most often this occurs in persons taking potassium supplements, or those with severe kidney disease. Mild hyperkalemia usually causes no symptoms. It is only discovered with a blood test. As the potassium level rises, symptoms may include weakness, heart palpitations (rapid or irregular heartbeats), nausea, vomiting, or diarrhea. Home Care: Follow your doctors advice about any potassium supplements and diuretics (water pills) you may be taking. Additional prescription medicines may also be given to remove excess potassium. Follow Up with your doctor for a repeat blood test within the next7 days, unless told otherwise. Get Prompt Medical Attention if any of the following occur: Weakness, dizziness Irregular heartbeat, extra beats, very fast or very slow heart rate Fainting spell Nausea, vomiting, or diarrhea Chest, arm, shoulder, neck or upper back pain, or shortness of breath Reduced urination Azithromycin Oral tablet What is this medicine? AZITHROMYCIN (az ith gregory LOMAS sin) is a macrolide antibiotic. It is used to treat or prevent certain kinds of bacterial infections. It will not work for colds, flu, or other viral infections. How should I use this medicine? Take this medicine by mouth with a full glass of water. Follow the directions on the prescription label. The tablets can be taken with food or on an empty stomach. If the medicine upsets your stomach, take it with food. Take your medicine at regular intervals. Do not take your medicine more often than directed. Take all of your medicine as directed even if you think your are better. Do not skip doses or stop your medicine early. Talk to your processing archivist regarding the use of this medicine in children. Special care may be needed. What side effects may I notice from receiving this medicine? Side effects that you should report to your doctor or health hearing care practitioner as soon as possible: allergic reactions like skin rash, itching or hives, swelling of the face, lips, or tongue confusion, nightmares or hallucinations dark urine difficulty breathing hearing loss irregular heartbeat or chest pain pain or difficulty passing urine redness, blistering, peeling or loosening of the skin, including inside the mouth white patches or sores in the mouth yellowing of the eyes or skin Side effects that usually do not require medical attention (report to your doctor or health hearing care practitioner if they continue or are bothersome): diarrhea dizziness, drowsiness headache stomach upset or vomiting tooth discoloration vaginal irritation What may interact with this medicine? Do not take this medicine with any of the following medications: lincomycin This medicine may also interact with the following medications: amiodarone antacids cyclosporine digoxin magnesium nelfinavir phenytoin warfarin What if I miss a dose? If you miss a dose, take it as soon as you can. If it is almost time for your next dose, take only that dose. Do not take double or extra doses. Where should I keep my medicine? Keep out of the reach of children. Store at room temperature between 15 and 30 degrees C (59 and 86 degrees F). Throw away any unused medicine after the expiration date. What should I tell my health care provider before I take this medicine? They need to know if you have any of these conditions: kidney disease liver disease irregular heartbeat or heart disease an unusual or allergic reaction to azithromycin, erythromycin, other macrolide antibiotics, foods, dyes, or preservatives or trying to get breast-feeding What should I watch for while using this medicine? Tell your doctor or health hearing care practitioner if your symptoms do not improve. Do not treat diarrhea with over the counter products. Contact your doctor if you have diarrhea that lasts more than 2 days or if it is severe and watery. This medicine can make you more sensitive to the sun. Keep out of the sun. If you cannot avoid being in the sun, wear protective clothing and use sunscreen. Do not use sun lamps or tanning beds/booths. You have been given the following additional information: Pneumonia (Adult) Hyperkalemia Azithromycin Oral tablet (Electronically signed by Ron Arthur Dr. 07/26/2016 8:33)
--- NOTE | 2016-07-26 08:33 | ED MED RECONCILIATION SUMMARY ---
Patient: AVINASH CHASE Medication Reconciliation Report [facility] VisitID: [id number] [address] [place] [address] 80y, M Registration Date/Time: 07/25/2016 Weight: 81.6 kg Height/Length: 72 in. BMI: 24.4 ALLERGIES: No Known Drug Allergy The patient's Home Medications are listed below: CONTINUE TAKING THE FOLLOWING MEDICATIONS: Avapro Oral, 2x a day Avodart Oral, daily BENTLEY Flomax Oral (0.4 mg) 1 capsule, 2x a day Gabapentin Oral, 4x a day HydrALAZINE HCl Oral x2 daily Lasix Oral, daily Lipitor Oral Norvasc Oral, daily TraMADol HCl Oral, 4x a day The source(s) of the original Home Medication information: Not obtained. The following Medications were given to the patient in the Emergency Department: Azithromycin [PO] PO 500 mg, administered: 07/25/2016 10:29:00 PM The following Medications were prescribed to the patient: Zithromax Z-Juan: Take according to package instructions. No refills. Substitution is permissible. -- Ron Arthur Dr.
--- NOTE | 2016-07-26 08:33 | ED MAR SUMMARY ---
..... Medication Administration Record Located Within [facility] [address] [place] [address] Patient: AVINASH CHASE Visit ID: [id number] 80y, M Weight: 81.6 kg Height/Length: 72 in BMI: 24.4 ALLERGIES: No Known Drug Allergy Given 22:29 07/25/2016 Diana Encinas, Medication Administered: AZITHROMYCIN [PO], Dose: 500 mg Tablets PO. Medication Ordered: Azithromycin PO 500 mg (NOW).
--- NOTE | 2016-07-26 08:33 | ED MED RECONCILIATION SUMMARY ---
Patient: AVINASH CHASE Medication Reconciliation Report [facility] VisitID: [id number] [address] [place] [address] 80y, M Registration Date/Time: 07/25/2016 Weight: 81.6 kg Height/Length: 72 in. BMI: 24.4 ALLERGIES: No Known Drug Allergy The patient's Home Medications are listed below: CONTINUE TAKING THE FOLLOWING MEDICATIONS: Avapro Oral, 2x a day Avodart Oral, daily BENTLEY Flomax Oral (0.4 mg) 1 capsule, 2x a day Gabapentin Oral, 4x a day HydrALAZINE HCl Oral x2 daily Lasix Oral, daily Lipitor Oral Norvasc Oral, daily TraMADol HCl Oral, 4x a day The source(s) of the original Home Medication information: Not obtained. The following Medications were given to the patient in the Emergency Department: Azithromycin [PO] PO 500 mg, administered: 07/25/2016 10:29:00 PM The following Medications were prescribed to the patient: Zithromax Z-Juan: Take according to package instructions. No refills. Substitution is permissible. -- Ron Arthur Dr.
--- NOTE | 2016-07-26 08:33 | ED MAR SUMMARY ---
..... Medication Administration Record [facility] [address] [place] [address] Patient: AVINASH CHASE Visit ID: [id number] 80y, M Weight: 81.6 kg Height/Length: 72 in BMI: 24.4 ALLERGIES: No Known Drug Allergy Given 22:29 07/25/2016 Diana Encinas, Medication Administered: AZITHROMYCIN [PO], Dose: 500 mg Tablets PO. Medication Ordered: Azithromycin PO 500 mg (NOW).
== END 2016-07-25 22:40 | disposition home or self-care (01) ==
LOC: ED SRH 17:48
DX: J15.9 Unspecified bacterial pneumonia (principal); E87.5 Hyperkalemia; N18.9 Chronic kidney disease, unspecified; I10 Essential (primary) hypertension; E11.9 Type 2 diabetes mellitus without complications; I50.9 Heart failure, unspecified; Z79.899 Other long term (current) drug therapy; Z79.891 Long term (current) use of opiate analgesic

== ENCOUNTER 2016-08-03 12:16 | Outpatient (CLI) | payer OTHER | END 2016-08-03 23:00 | LOC: LAB SRH 12:16 | DX: E87.5 Hyperkalemia (principal) | CPT/HCPCS: 90047; 90074 ==